=== PATIENT | female | born 1975 ===

== ENCOUNTER 2017-10-14 00:46 | Inpatient (IN) ==
[2017-10-14 01:34] LABS: Basophils # 0.1 10*3/uL (0.0-0.2); Basophils % 0.3 % (0.0-0.8); Eosinophils # 0.1 10*3/uL (0.0-0.87); Eosinophils % 0.3 % (0.00-10.9); Hematocrit 38.4 VOL% (35.7-47.0); Hemoglobin 12.7 GM/DL (12.0-16.0); Immature Granulocytes % 0.8 %; Immature Granulocytes Absolute 0.16 #; Lymphocytes # 2.5 10*3/uL (1.4-4.0); Lymphocytes % 12.6 % (21.3-54.2); Mean Corpuscular HGB Conc 33.1 GM/DL (32-36); Mean Corpuscular Hemoglobin 28 PG (27-34); Mean Corpuscular Volume 83.7 FL (87-102); Mean Platelet Volume 10.5 FL (9.6-12.0); Monocytes # 1.1 10*3/uL (0.11-0.8); Monocytes % 5.3 % (1.7-12.7); Neutrophils # 15.9 10*3/uL (1.4-7.4); Neutrophils % 80.7 % (38.7-73.9); Platelet Count 199 T/CUMM (130-400); Red Blood Count 4.59 MC/CUMM (3.8-5.5); Red Cell Distribution Width 14.9 % (9.3-17.3); White Blood Count 19.7 T/CUMM (4-12)
[2017-10-14 01:59] LABS: Lactic Acid 1.5 MMOL/L (0.4-2.0)
[2017-10-14 02:00] LABS: Albumin 2.6 G/DL (3.4-5.0); Bilirubin,Total 0.9 MG/DL (0.2-1.0); Calcium 7.8 MG/DL (8.5-10.1); Magnesium 1.9 MG/DL (1.8-2.4); Osmolality,Calculated 266.5 MOS/KG (273-304); Potassium 3.3 MMOL/L (3.5-5.1); Total Protein 7.3 G/DL (6.4-8.3)
[2017-10-14] MEDS ORDERED: POTASSIUM CHLORIDE 20 MEQ TABLET PO STA (02:09)
[2017-10-14] MEDS ORDERED: POTASSIUM CHLORIDE 20 MEQ TABLET PO ONE ×2 (02:38→03:24)
[2017-10-14] MEDS ORDERED: ONDANSETRON 4 MG/2 ML VIAL IV PRN (02:55)
[2017-10-14] MEDS ORDERED: ACETAMINOPHEN 325 MG TABLET PO PRN (02:55)
[2017-10-14] MEDS ORDERED: DOCUSATE/SENNA 50-8.6 MG TABLET PO PRN (03:01)
[2017-10-14] MEDS: CEFTAROLINE 600 MG in SODIUM CHLORIDE 0.9% 50 ML IV SCH ×2 (03:50→15:39)
[2017-10-14 04:13] LABS: Apearance,Urine CLOUDY (Clear); Bacteria,Urine Occasional /HPF (Few); Bilirubin,Urine Negative (Negative); Blood, Urine Small mg/dL (Negative); Glucose,Urine (UA) Negative (Negative); Ketones,Urine Negative (Negative); Nitrite,Urine Negative (Negative); Protein,Urine Negative; RBC,Urine 2 /HPF (0-4); Squamous Epithelial Cell,Urine Many /HPF (0-10); Urine Color Yellow (Yellow); Urine Urobilinogen < 2.0 EU/DL (0.2-1.0); WBC,Urine 4 /HPF (0-6)
[2017-10-14] MEDS: ENOXAPARIN 40 MG/0.4 ML SYRINGE SUBCUT SCH (04:29)
[2017-10-14 07:05] LABS: Basophils # 0.1 10*3/uL (0.0-0.2); Basophils % 0.3 % (0.0-0.8); Eosinophils # 0.1 10*3/uL (0.0-0.87); Eosinophils % 0.4 % (0.00-10.9); Hematocrit 38.8 VOL% (35.7-47.0); Hemoglobin 12.6 GM/DL (12.0-16.0); Immature Granulocytes % 0.8 %; Immature Granulocytes Absolute 0.15 #; Mean Corpuscular HGB Conc 32.5 GM/DL (32-36); Mean Corpuscular Hemoglobin 28 PG (27-34); Mean Corpuscular Volume 84.7 FL (87-102); Mean Platelet Volume 10.8 FL (9.6-12.0); Monocytes # 1.2 10*3/uL (0.11-0.8); Monocytes % 6.7 % (1.7-12.7); Neutrophils # 14.5 10*3/uL (1.4-7.4); Neutrophils % 80.8 % (38.7-73.9); Platelet Count 202 T/CUMM (130-400); Red Blood Count 4.58 MC/CUMM (3.8-5.5); Red Cell Distribution Width 15.1 % (9.3-17.3); White Blood Count 17.9 T/CUMM (4-12)
[2017-10-14 07:24] LABS: Calcium 8.2 MG/DL (8.5-10.1); Osmolality,Calculated 268.2 MOS/KG (273-304); Potassium 3.8 MMOL/L (3.5-5.1)
[2017-10-14] MEDS: CHOLECALCIFEROL 1,000 UNIT TABLET PO SCH (08:53)
[2017-10-14] MEDS: CARVEDILOL 6.25 MG TABLET PO SCH ×2 (08:54→20:04)
[2017-10-14] MEDS: MAGNESIUM CHLORIDE 64 MG TABLET PO SCH ×2 (08:54→20:04)
[2017-10-14] MEDS: ASPIRIN EC 81 MG TABLET PO SCH (08:54)
[2017-10-14] MEDS ORDERED: SPIRONOLACTONE 25 MG TABLET PO SCH (09:00)
[2017-10-14] MEDS ORDERED: LISINOPRIL 5 MG TABLET PO SCH (09:00)
[2017-10-14] MEDS ORDERED: FUROSEMIDE 40 MG TABLET PO SCH (09:00)
[2017-10-14] MEDS ORDERED: POTASSIUM CHLORIDE 20 MEQ TABLET PO SCH (09:00)
[2017-10-15] MEDS: CEFTAROLINE 600 MG in SODIUM CHLORIDE 0.9% 50 ML IV SCH (03:08)
[2017-10-15] MEDS: ENOXAPARIN 40 MG/0.4 ML SYRINGE SUBCUT SCH (05:42)
[2017-10-15] MEDS: CHOLECALCIFEROL 1,000 UNIT TABLET PO SCH (08:06)
[2017-10-15] MEDS: MAGNESIUM CHLORIDE 64 MG TABLET PO SCH ×2 (08:06→21:28)
[2017-10-15] MEDS: CARVEDILOL 6.25 MG TABLET PO SCH ×2 (08:06→21:28)
[2017-10-15] MEDS: ASPIRIN EC 81 MG TABLET PO SCH (08:06)
[2017-10-15] MEDS: VANCOMYCIN INJ 2,000 MG in SODIUM CHLORIDE 0.9% 500 ML IV SCH (17:13)
[2017-10-16] MEDS: ENOXAPARIN 40 MG/0.4 ML SYRINGE SUBCUT SCH (05:02)
[2017-10-16] MEDS: VANCOMYCIN INJ 2,000 MG in SODIUM CHLORIDE 0.9% 500 ML IV SCH ×2 (05:02→16:00)
[2017-10-16] MEDS: MAGNESIUM CHLORIDE 64 MG TABLET PO SCH ×2 (08:10→21:44)
[2017-10-16] MEDS: CHOLECALCIFEROL 1,000 UNIT TABLET PO SCH (08:10)
[2017-10-16] MEDS: CARVEDILOL 6.25 MG TABLET PO SCH ×2 (08:10→21:43)
[2017-10-16] MEDS: ASPIRIN EC 81 MG TABLET PO SCH (08:10)
[2017-10-16] MEDS ORDERED: GLUCAGON 1 MG VIAL IM PRN (16:23)
[2017-10-16] MEDS ORDERED: DEXTROSE 50% 25 GM/50 ML VIAL IV PRN (16:23)
[2017-10-16] MEDS: INSULIN LISPRO 100 UNIT/ML SUBCUT SCH ×2 (18:35→21:44)
[2017-10-16] MEDS: FUROSEMIDE 40 MG/4 ML VIAL IV SCH (18:35)
[2017-10-16] MEDS: POTASSIUM CHLORIDE 20 MEQ TABLET PO SCH (18:38)
[2017-10-16] MEDS: SPIRONOLACTONE 25 MG TABLET PO SCH (18:38)
[2017-10-17] MEDS: VANCOMYCIN INJ 2,000 MG in SODIUM CHLORIDE 0.9% 500 ML IV SCH (04:52)
[2017-10-17] MEDS: ENOXAPARIN 40 MG/0.4 ML SYRINGE SUBCUT SCH (04:52)
[2017-10-17 06:43] LABS: Calcium 8.4 MG/DL (8.5-10.1); Osmolality,Calculated 271.8 MOS/KG (273-304); Potassium 4.9 MMOL/L (3.5-5.1)
[2017-10-17] MEDS: INSULIN LISPRO 100 UNIT/ML SUBCUT SCH ×4 (08:03→20:04)
[2017-10-17] MEDS: SPIRONOLACTONE 25 MG TABLET PO SCH (08:30)
[2017-10-17] MEDS: MAGNESIUM CHLORIDE 64 MG TABLET PO SCH ×2 (08:31→20:42)
[2017-10-17] MEDS: CARVEDILOL 6.25 MG TABLET PO SCH ×2 (08:31→20:42)
[2017-10-17] MEDS: FUROSEMIDE 40 MG/4 ML VIAL IV SCH (08:31)
[2017-10-17] MEDS: ASPIRIN EC 81 MG TABLET PO SCH (08:31)
[2017-10-17] MEDS: POTASSIUM CHLORIDE 20 MEQ TABLET PO SCH (08:31)
[2017-10-17] MEDS: CHOLECALCIFEROL 1,000 UNIT TABLET PO SCH (08:31)
[2017-10-17 10:40] LABS: Basophils # 0.1 10*3/uL (0.0-0.2); Basophils % 0.7 % (0.0-0.8); Eosinophils # 0.2 10*3/uL (0.0-0.87); Eosinophils % 2.2 % (0.00-10.9); Hematocrit 39.6 VOL% (35.7-47.0); Hemoglobin 12.8 GM/DL (12.0-16.0); Immature Granulocytes % 2.3 %; Immature Granulocytes Absolute 0.24 #; Lymphocytes # 2.1 10*3/uL (1.4-4.0); Lymphocytes % 20.1 % (21.3-54.2); Mean Corpuscular HGB Conc 32.3 GM/DL (32-36); Mean Corpuscular Hemoglobin 28 PG (27-34); Mean Platelet Volume 10.6 FL (9.6-12.0); Monocytes % 9.5 % (1.7-12.7); Neutrophils # 6.7 10*3/uL (1.4-7.4); Neutrophils % 65.2 % (38.7-73.9); Platelet Count 263 T/CUMM (130-400); Red Blood Count 4.66 MC/CUMM (3.8-5.5); Red Cell Distribution Width 14.8 % (9.3-17.3); White Blood Count 10.3 T/CUMM (4-12)
[2017-10-17] MEDS ORDERED: cefTAZidime 500 MG in SYRINGE 1 EACH IV SCH (11:30)
[2017-10-17] MEDS: LINEZOLID 600 MG TABLET PO SCH ×2 (17:59→20:42)
[2017-10-18] MEDS: ENOXAPARIN 40 MG/0.4 ML SYRINGE SUBCUT SCH (05:04)
[2017-10-18] MEDS: INSULIN LISPRO 100 UNIT/ML SUBCUT SCH ×4 (08:28→20:22)
[2017-10-18] MEDS: CARVEDILOL 6.25 MG TABLET PO SCH ×2 (09:52→20:20)
[2017-10-18] MEDS: ASPIRIN EC 81 MG TABLET PO SCH (09:52)
[2017-10-18] MEDS: MAGNESIUM CHLORIDE 64 MG TABLET PO SCH ×2 (09:52→20:20)
[2017-10-18] MEDS: POTASSIUM CHLORIDE 20 MEQ TABLET PO SCH (09:52)
[2017-10-18] MEDS: LINEZOLID 600 MG TABLET PO SCH ×2 (09:52→20:21)
[2017-10-18] MEDS: SPIRONOLACTONE 25 MG TABLET PO SCH (09:52)
[2017-10-18] MEDS: CHOLECALCIFEROL 1,000 UNIT TABLET PO SCH (09:52)
[2017-10-18] MEDS: FUROSEMIDE 40 MG/4 ML VIAL IV SCH (09:52)
[2017-10-19 02:48] LABS: Basophils # 0.1 10*3/uL (0.0-0.2); Basophils % 0.5 % (0.0-0.8); Eosinophils # 0.4 10*3/uL (0.0-0.87); Eosinophils % 2.7 % (0.00-10.9); Hematocrit 36.6 VOL% (35.7-47.0); Hemoglobin 11.8 GM/DL (12.0-16.0); Immature Granulocytes Absolute 0.68 #; Lymphocytes # 2.8 10*3/uL (1.4-4.0); Lymphocytes % 20.8 % (21.3-54.2); Mean Corpuscular HGB Conc 32.2 GM/DL (32-36); Mean Corpuscular Hemoglobin 27 PG (27-34); Mean Corpuscular Volume 84.9 FL (87-102); Mean Platelet Volume 10.4 FL (9.6-12.0); Monocytes % 7.6 % (1.7-12.7); NRBC # 0.02 10*3/uL; Neutrophils # 8.5 10*3/uL (1.4-7.4); Neutrophils % 63.4 % (38.7-73.9); Platelet Count 279 T/CUMM (130-400); Red Blood Count 4.31 MC/CUMM (3.8-5.5); Red Cell Distribution Width 14.6 % (9.3-17.3); White Blood Count 13.5 T/CUMM (4-12)
[2017-10-19 03:04] LABS: Calcium 8.5 MG/DL (8.5-10.1); Osmolality,Calculated 263.4 MOS/KG (273-304); Potassium 4.4 MMOL/L (3.5-5.1)
[2017-10-19 04:15] LABS: Band Neutrophils 1 % (0-10); Eosinophils 3 % (0-10); Lymphocytes 23 % (20-55); Segmented Neutrophils 63 % (50-85)
[2017-10-19 04:16] LABS: Platelet Estimate Adequate; Total Cells Counted 100
[2017-10-19] MEDS: ENOXAPARIN 40 MG/0.4 ML SYRINGE SUBCUT SCH (04:55)
[2017-10-19] MEDS: INSULIN LISPRO 100 UNIT/ML SUBCUT SCH ×4 (08:11→20:08)
[2017-10-19] MEDS: CARVEDILOL 6.25 MG TABLET PO SCH ×2 (09:05→21:12)
[2017-10-19] MEDS: FUROSEMIDE 40 MG/4 ML VIAL IV SCH (09:05)
[2017-10-19] MEDS ORDERED: DEXTROSE 50% 25 GM/50 ML VIAL IV PRN (11:46)
[2017-10-19] MEDS ORDERED: GLUCAGON 1 MG VIAL IM PRN (11:46)
[2017-10-19] MEDS: LINEZOLID 600 MG TABLET PO SCH ×2 (11:49→21:12)
[2017-10-19] MEDS: SPIRONOLACTONE 25 MG TABLET PO SCH ×2 (11:49→11:54)
[2017-10-19] MEDS: CHOLECALCIFEROL 1,000 UNIT TABLET PO SCH (11:49)
[2017-10-19] MEDS: MAGNESIUM CHLORIDE 64 MG TABLET PO SCH ×2 (11:49→21:12)
[2017-10-19] MEDS: ASPIRIN EC 81 MG TABLET PO SCH (11:50)
[2017-10-19] MEDS: SODIUM CHLORIDE 0.9% 1,000 ML IV SCH (11:50)
[2017-10-20] MEDS: SODIUM CHLORIDE 0.9% 1,000 ML IV SCH ×2 (00:52→18:20)
[2017-10-20] MEDS: ENOXAPARIN 40 MG/0.4 ML SYRINGE SUBCUT SCH (04:23)
[2017-10-20 05:24] LABS: Calcium 7.5 MG/DL (8.5-10.1); Magnesium 2.5 MG/DL (1.8-2.4); Osmolality,Calculated 272.7 MOS/KG (273-304); Potassium 4.2 MMOL/L (3.5-5.1)
[2017-10-20 05:28] LABS: Basophils # 0.1 10*3/uL (0.0-0.2); Basophils % 0.4 % (0.0-0.8); Eosinophils # 0.4 10*3/uL (0.0-0.87); Eosinophils % 3.2 % (0.00-10.9); Hematocrit 34.2 VOL% (35.7-47.0); Hemoglobin 11.5 GM/DL (12.0-16.0); Immature Granulocytes % 6.4 %; Immature Granulocytes Absolute 0.75 #; Lymphocytes # 2.6 10*3/uL (1.4-4.0); Lymphocytes % 21.9 % (21.3-54.2); Mean Corpuscular HGB Conc 33.6 GM/DL (32-36); Mean Corpuscular Hemoglobin 28 PG (27-34); Mean Corpuscular Volume 84.2 FL (87-102); Monocytes % 8.2 % (1.7-12.7); NRBC # 0.06 10*3/uL; Neutrophils % 59.9 % (38.7-73.9); Platelet Count 229 T/CUMM (130-400); Red Blood Count 4.06 MC/CUMM (3.8-5.5); Red Cell Distribution Width 14.9 % (9.3-17.3); White Blood Count 11.7 T/CUMM (4-12)
[2017-10-20 06:21] LABS: Band Neutrophils 1 % (0-10); Eosinophils 3 % (0-10); Lymphocytes 25 % (20-55); Metamyelocytes 1 %; Segmented Neutrophils 60 % (50-85); Total Cells Counted 100
[2017-10-20 06:22] LABS: Hypochromasia 1+; Platelet Estimate Normal; Polychromasia Slight
[2017-10-20 06:23] LABS: Microcytosis Slight; Target Cells Slight
[2017-10-20] MEDS: INSULIN LISPRO 100 UNIT/ML SUBCUT SCH ×4 (08:40→21:44)
[2017-10-20] MEDS: LINEZOLID 600 MG TABLET PO SCH ×2 (09:00→21:44)
[2017-10-20] MEDS: MAGNESIUM CHLORIDE 64 MG TABLET PO SCH ×2 (09:00→21:44)
[2017-10-20 09:03] LABS: Albumin 2.4 G/DL (3.4-5.0); Bilirubin,Total 0.5 MG/DL (0.2-1.0); Calcium 7.7 MG/DL (8.5-10.1); Phosphorous 3.3 MG/DL (2.5-4.9); Potassium 4.5 MMOL/L (3.5-5.1); Total Protein 7.2 G/DL (6.4-8.3)
[2017-10-20] MEDS: CARVEDILOL 6.25 MG TABLET PO SCH ×2 (09:29→21:45)
[2017-10-20] MEDS: FUROSEMIDE 40 MG/4 ML VIAL IV SCH (09:30)
[2017-10-20] MEDS ORDERED: BUPIVACAINE 0.25% 50 ML VIAL ONE (12:42)
[2017-10-20] MEDS ORDERED: GENTAMICIN 0.1% CREAM 15 GM TUBE TOP ONE (13:41)
[2017-10-20] MEDS ORDERED: CALCIUM CHLORIDE 1,000 MG/10 ML VIAL IV ONE (14:16)
[2017-10-20] MEDS ORDERED: PROPOFOL 200 MG/20 ML VIAL IV ONE (14:16)
[2017-10-20] MEDS ORDERED: SUCCINYLCHOLINE 200 MG/10 ML VIAL ONE (14:17)
[2017-10-20] MEDS ORDERED: fentaNYL 100 MCG/2 ML VIAL ONE (14:17)
[2017-10-20] MEDS ORDERED: MIDAZOLAM 2 MG/2 ML VIAL ONE (14:17)
[2017-10-20] MEDS ORDERED: ONDANSETRON 4 MG/2 ML VIAL ONE (14:17)
[2017-10-20] MEDS ORDERED: HYDROmorphone 2 MG/1 ML VIAL IV PRN (14:22)
[2017-10-20] MEDS: ASPIRIN EC 81 MG TABLET PO SCH (16:32)
[2017-10-20] MEDS: CHOLECALCIFEROL 1,000 UNIT TABLET PO SCH (16:33)
[2017-10-20] MEDS: SPIRONOLACTONE 25 MG TABLET PO SCH (16:33)
[2017-10-21] MEDS: SODIUM CHLORIDE 0.9% 1,000 ML IV SCH ×2 (03:03→17:10)
[2017-10-21] MEDS: ENOXAPARIN 40 MG/0.4 ML SYRINGE SUBCUT SCH (04:57)
[2017-10-21 05:54] LABS: Basophils % 0.4 % (0.0-0.8); Eosinophils # 0.2 10*3/uL (0.0-0.87); Eosinophils % 1.8 % (0.00-10.9); Hematocrit 34.2 VOL% (35.7-47.0); Hemoglobin 10.8 GM/DL (12.0-16.0); Immature Granulocytes % 4.2 %; Immature Granulocytes Absolute 0.42 #; Lymphocytes # 2.3 10*3/uL (1.4-4.0); Lymphocytes % 23.2 % (21.3-54.2); Mean Corpuscular HGB Conc 31.6 GM/DL (32-36); Mean Corpuscular Hemoglobin 27 PG (27-34); Mean Corpuscular Volume 86.6 FL (87-102); Mean Platelet Volume 9.8 FL (9.6-12.0); Monocytes # 0.8 10*3/uL (0.11-0.8); Monocytes % 8.5 % (1.7-12.7); Neutrophils # 6.1 10*3/uL (1.4-7.4); Neutrophils % 61.9 % (38.7-73.9); Platelet Count 290 T/CUMM (130-400); Red Blood Count 3.95 MC/CUMM (3.8-5.5); Red Cell Distribution Width 14.6 % (9.3-17.3); White Blood Count 9.9 T/CUMM (4-12)
[2017-10-21 06:32] LABS: Albumin 2.3 G/DL (3.4-5.0); Bilirubin,Total 0.4 MG/DL (0.2-1.0); Calcium 8.1 MG/DL (8.5-10.1); Magnesium 2.3 MG/DL (1.8-2.4); Phosphorous 4.2 MG/DL (2.5-4.9); Potassium 4.2 MMOL/L (3.5-5.1); Total Protein 6.9 G/DL (6.4-8.3)
[2017-10-21] MEDS: INSULIN LISPRO 100 UNIT/ML SUBCUT SCH ×4 (08:10→20:14)
[2017-10-21] MEDS: SPIRONOLACTONE 25 MG TABLET PO SCH (10:09)
[2017-10-21] MEDS: CHOLECALCIFEROL 1,000 UNIT TABLET PO SCH (10:10)
[2017-10-21] MEDS: MAGNESIUM CHLORIDE 64 MG TABLET PO SCH ×2 (10:10→21:58)
[2017-10-21] MEDS: ASPIRIN EC 81 MG TABLET PO SCH (10:10)
[2017-10-21] MEDS: PANTOPRAZOLE 40 MG TABLET PO SCH (10:10)
[2017-10-21] MEDS: CARVEDILOL 6.25 MG TABLET PO SCH ×2 (10:10→21:58)
[2017-10-21] MEDS: LINEZOLID 600 MG TABLET PO SCH ×2 (10:11→21:58)
[2017-10-21] MEDS: FUROSEMIDE 40 MG/4 ML VIAL IV SCH (10:11)
[2017-10-21] MEDS: GENTAMICIN 0.1% CREAM 15 GM TUBE TOP SCH (15:20)
[2017-10-22] MEDS: ENOXAPARIN 40 MG/0.4 ML SYRINGE SUBCUT SCH (05:19)
[2017-10-22] MEDS: SODIUM CHLORIDE 0.9% 1,000 ML IV SCH ×3 (05:19→16:35)
[2017-10-22 05:47] LABS: Basophils % 0.4 % (0.0-0.8); Eosinophils # 0.2 10*3/uL (0.0-0.87); Eosinophils % 2.2 % (0.00-10.9); Immature Granulocytes % 2.4 %; Immature Granulocytes Absolute 0.22 #; Lymphocytes % 21.9 % (21.3-54.2); Mean Corpuscular HGB Conc 31.4 GM/DL (32-36); Mean Corpuscular Hemoglobin 27 PG (27-34); Mean Corpuscular Volume 86.6 FL (87-102); Mean Platelet Volume 9.9 FL (9.6-12.0); Monocytes # 0.7 10*3/uL (0.11-0.8); Monocytes % 7.4 % (1.7-12.7); Neutrophils # 6.1 10*3/uL (1.4-7.4); Neutrophils % 65.7 % (38.7-73.9); Platelet Count 310 T/CUMM (130-400); Red Blood Count 4.04 MC/CUMM (3.8-5.5); Red Cell Distribution Width 14.7 % (9.3-17.3); White Blood Count 9.3 T/CUMM (4-12)
[2017-10-22 06:18] LABS: Albumin 2.4 G/DL (3.4-5.0); Bilirubin,Total 0.7 MG/DL (0.2-1.0); Calcium 7.9 MG/DL (8.5-10.1); Magnesium 2.3 MG/DL (1.8-2.4); Osmolality,Calculated 273.7 MOS/KG (273-304); Phosphorous 4.1 MG/DL (2.5-4.9); Potassium 4.1 MMOL/L (3.5-5.1); Total Protein 7.5 G/DL (6.4-8.3)
[2017-10-22] MEDS: INSULIN LISPRO 100 UNIT/ML SUBCUT SCH ×4 (07:19→21:15)
[2017-10-22] MEDS: SPIRONOLACTONE 25 MG TABLET PO SCH (08:54)
[2017-10-22] MEDS: FUROSEMIDE 40 MG/4 ML VIAL IV SCH (08:54)
[2017-10-22] MEDS: MAGNESIUM CHLORIDE 64 MG TABLET PO SCH ×2 (08:54→21:14)
[2017-10-22] MEDS: CARVEDILOL 6.25 MG TABLET PO SCH ×2 (08:54→21:15)
[2017-10-22] MEDS: ASPIRIN EC 81 MG TABLET PO SCH (08:54)
[2017-10-22] MEDS: PANTOPRAZOLE 40 MG TABLET PO SCH (08:55)
[2017-10-22] MEDS: LINEZOLID 600 MG TABLET PO SCH ×2 (08:55→21:14)
[2017-10-22] MEDS: CHOLECALCIFEROL 1,000 UNIT TABLET PO SCH (08:55)
[2017-10-22] MEDS: GENTAMICIN 0.1% CREAM 15 GM TUBE TOP SCH (10:29)
[2017-10-23] MEDS: ENOXAPARIN 40 MG/0.4 ML SYRINGE SUBCUT SCH (05:04)
[2017-10-23] MEDS: INSULIN LISPRO 100 UNIT/ML SUBCUT SCH ×4 (08:00→20:28)
[2017-10-23] MEDS: SODIUM CHLORIDE 0.9% 1,000 ML IV SCH (09:50)
[2017-10-23] MEDS: PANTOPRAZOLE 40 MG TABLET PO SCH (09:52)
[2017-10-23] MEDS: CHOLECALCIFEROL 1,000 UNIT TABLET PO SCH (09:52)
[2017-10-23] MEDS: MAGNESIUM CHLORIDE 64 MG TABLET PO SCH ×2 (09:52→20:27)
[2017-10-23] MEDS: SPIRONOLACTONE 25 MG TABLET PO SCH (09:52)
[2017-10-23] MEDS: FUROSEMIDE 40 MG/4 ML VIAL IV SCH (09:52)
[2017-10-23] MEDS: CARVEDILOL 6.25 MG TABLET PO SCH ×2 (09:52→20:27)
[2017-10-23] MEDS: LINEZOLID 600 MG TABLET PO SCH ×2 (09:52→20:27)
[2017-10-23] MEDS: ASPIRIN EC 81 MG TABLET PO SCH (09:52)
[2017-10-23] MEDS: GENTAMICIN 0.1% CREAM 15 GM TUBE TOP SCH (09:55)
[2017-10-24] MEDS: SODIUM CHLORIDE 0.9% 1,000 ML IV SCH (00:45)
[2017-10-24] MEDS: ENOXAPARIN 40 MG/0.4 ML SYRINGE SUBCUT SCH (04:49)
[2017-10-24] MEDS: INSULIN LISPRO 100 UNIT/ML SUBCUT SCH ×2 (08:41→12:17)
[2017-10-24] MEDS: ASPIRIN EC 81 MG TABLET PO SCH (09:17)
[2017-10-24] MEDS: SPIRONOLACTONE 25 MG TABLET PO SCH (09:17)
[2017-10-24] MEDS: CARVEDILOL 6.25 MG TABLET PO SCH (09:17)
[2017-10-24] MEDS: FUROSEMIDE 40 MG/4 ML VIAL IV SCH (09:17)
[2017-10-24] MEDS: PANTOPRAZOLE 40 MG TABLET PO SCH (09:18)
[2017-10-24] MEDS: LINEZOLID 600 MG TABLET PO SCH (09:18)
[2017-10-24] MEDS: MAGNESIUM CHLORIDE 64 MG TABLET PO SCH (09:18)
[2017-10-24] MEDS: CHOLECALCIFEROL 1,000 UNIT TABLET PO SCH (09:18)
[2017-10-24 11:09] VITALS: BP 121/56
[2017-10-24] MEDS: GENTAMICIN 0.1% CREAM 15 GM TUBE TOP SCH (11:15)
== END 2017-10-24 13:30 | disposition home health service (06) | DRG 872 ==
LOC: EDUNIT# → EDBD → N.ED 00:46 → SUATTDRO 02:32 → N.EDINP 02:32 → N.3E 03:00
PROVIDERS: ADMIT Internal Medicine; ATTEND Internal Medicine